=== PATIENT | female | born 1975 | race Two or more races ===

== ENCOUNTER 2016-05-18 10:20 | Inpatient (IN) | payer SELFPAY ==
[~2016-05-18 10:20] MED LIST: NORCO 5/325 TAB1 TAB PO
[2016-05-18 12:54] LABS: URINE APPEARANCE CLEAR; URINE BILIRUBIN NEGATIVE (NEG); URINE BLOOD SMALL (NEG); URINE COLOR YELLOW; URINE GLUCOSE (UA) LARGE (NEG); URINE KETONE NEGATIVE (NEG); URINE LEUKOCYTE ESTERASE POSITIVE (NEG); URINE NITRITE NEGATIVE (NEG); URINE PROTEIN NEGATIVE (NEG)
[2016-05-18 13:02] LABS: PREGNANCY-SERUM NEGATIVE (NEGATIVE)
[2016-05-18 13:04] LABS: BASO % 0.4 % (0-2); EOS % 1.9 % (0-7); EOSINOPHIL ABSOLUTE COUNT 0.2 tho/cmm (0.0-0.7); HGB-HEMOGLOBIN 13.2 gm/dl (12.0-15.5); LYMPH % 29.8 % (20-45); LYMPH ABSOLUTE COUNT 2.4 tho/cmm (0.8-4.5); MCH (MEAN CORPUSCULAR HGB) 29.4 pg (28.0-32.0); MCV (MEAN CELL VOLUME) 89.1 fl (82.0-96.0); MONO % 7.4 % (0-12); MONOCYTE ABSOLUTE COUNT 0.6 tho/cmm (0.0-1.2); NEUTROPHIL ABSOLUTE COUNT 4.9 tho/cmm (1.6-8.0); NEUTROPHIL-AUTOMATED 4.9 tho/cmm (1.6-8.0); NEUTROPHILS % 60.5 % (40-80); PLATELET COUNT 227 tho/cmm (150-450); RED BLOOD COUNT 4.49 mil/cmm (4.00-5.20); RED CELL DISTRIBUTION WIDTH 12.9 % (12.4-16.4); WHITE BLOOD COUNT 8.1 tho/cmm (4.0-10.0)
[2016-05-18 13:10] LABS: ALB/GLOB RATIO 0.8 (0.8-2.0); ALBUMIN 3.1 g/dl (3.5-5.0); ALKALINE PHOSPHATASE 94 U/L (33-138); ALT/SGPT 39 U/L (12-78); ANION GAP 12 mmol/L (0-20); BILIRUBIN,TOTAL 0.3 mg/dl (0-1.5); BLOOD UREA NITROGEN 16 mg/dl (6-24); C-REACTIVE PROTEIN 4.7 mg/dl (0-0.9); CALCIUM 8.4 mg/dl (8.5-10.5); CARBON DIOXIDE-VENOUS 24 mmol/L (22-32); CHLORIDE 107 mmol/l (96-110); CREATININE 0.93 mg/dl (0.50-1.10); GLUCOSE 327 mg/dL (70-110); LIPASE 262 U/L (73-393); SODIUM 139 mmol/L (135-145); eGFR VALUE FOR BLACK 90 mL/Min
[2016-05-18 13:11] LABS: AST/SGOT 20 U/L (10-40)
[2016-05-18 13:31] LABS: URINE BACTERIA 1+
[2016-05-19 06:17] LABS: BASO % 0.2 % (0-2); EOS % 1.6 % (0-7); EOSINOPHIL ABSOLUTE COUNT 0.1 tho/cmm (0.0-0.7); HCT-HEMATOCRIT 37.9 % (34.0-49.0); HGB-HEMOGLOBIN 12.5 gm/dl (12.0-15.5); IMMATURE GRANULOCYTES ABSOLUTE 0.01 tho/cmm (0-0.03); IMMATURE GRANULOCYTES PERCENT 0.1 % (0-0.3); LYMPH % 34.6 % (20-45); LYMPH ABSOLUTE COUNT 2.8 tho/cmm (0.8-4.5); MCH (MEAN CORPUSCULAR HGB) 29.3 pg (28.0-32.0); MEAN PLATELET VOLUME 10.5 cmc (9.4-12.4); MONO % 5.7 % (0-12); MONOCYTE ABSOLUTE COUNT 0.5 tho/cmm (0.0-1.2); NEUTROPHIL ABSOLUTE COUNT 4.7 tho/cmm (1.6-8.0); NEUTROPHIL-AUTOMATED 4.7 tho/cmm (1.6-8.0); NEUTROPHILS % 57.8 % (40-80); PLATELET COUNT 211 tho/cmm (150-450); RED BLOOD COUNT 4.26 mil/cmm (4.00-5.20); WHITE BLOOD COUNT 8.1 tho/cmm (4.0-10.0)
[2016-05-19 06:24] LABS: ANION GAP 10 mmol/L (0-20); BLOOD UREA NITROGEN 9 mg/dl (6-24); CALCIUM 8.2 mg/dl (8.5-10.5); CARBON DIOXIDE-VENOUS 27 mmol/L (22-32); CHLORIDE 109 mmol/l (96-110); GLUCOSE 171 mg/dL (70-110); POTASSIUM 3.8 mmol/L (3.7-5.1); SODIUM 142 mmol/L (135-145); eGFR VALUE FOR BLACK >90 mL/Min
[2016-05-20] MEDS ORDERED: LEVEMIR100 UNITS/ SC (14:25)
[2016-05-20] MEDS ORDERED: LANTUS100 UNITS/ SC (14:30)
[2016-05-20] MEDS ORDERED: NOVOLOG100 UNIT/2 SC (14:32)
[2016-05-20] MEDS ORDERED: FLAGYL500 M1 PO ×2 (14:33→14:34)
[2016-05-20] MEDS ORDERED: GLUCOPHAGE500 M3 PO (14:33)
[2016-05-20] MEDS ORDERED: CIPRO500 M2 PO (14:34)
[2016-08-02] MEDS ORDERED: NORCO 5-325 TA1 EACH PO (14:42)
[2016-08-02] MEDS ORDERED: COLACE100 M1 PO (14:43)
== END 2016-05-20 16:15 | DRG 392 ==
LOC: EDMED 10:20 → EMR2 16:31 → 5WE 18:05
PROVIDERS: Emergency Medicine; ADMIT Hospitalist
DX: K57.32 Diverticulitis of large intestine without perforation or abscess without bleeding (principal); K76.0 Fatty (change of) liver, not elsewhere classified; E11.9 Type 2 diabetes mellitus without complications; K80.20 Calculus of gallbladder without cholecystitis without obstruction; E66.9 Obesity, unspecified; Z68.37 Body mass index [BMI] 37.0-37.9, adult; R82.71 Bacteriuria
CPT/HCPCS: J1650; J1815; J1956; J2270; J2405; J7030; Q9967